=== PATIENT | female | born 1965 | race Caucasian/White ===

== ENCOUNTER 2017-02-13 08:56 | Observation (INO) | payer OTHER ==
--- NOTE | ~2017-02-13 | PREOPHP ---
PreOp History and Physical [place] [address] [facility] [place]. [address] NAME: NGUYỄN BROWNE : 63 STATUS : REG [facility] [place] PAT#: [id number] AGE: 51 ADM/REG DATE : 02/13/17 MR#: [id number] REPORT SERV DATE: 02/13/17 DICTATED BY: KODAK MANTILLA DATE: 02/13/17 REPORT STATUS : Draft TRANSCRIBED BY: YUSRA DATE: 02/13/17 CHIEF COMPLAINT: Neck and bilateral upper extremity pain. HISTORY OF PRESENT ILLNESS: The patient is a 51-year-old with neck pain and bilateral upper extremity pain as well as worsening problems with balance and dropping objects. After discussion of risks and benefits and informed consent and neurologic decline, the patient elected to proceed with surgical intervention. REVIEW OF SYSTEMS: She denies chest pain, shortness of breath, and bowel or bladder changes. PHYSICAL EXAMINATION: GENERAL: The patient is healthy appearing, in no acute distress. PSYCH: Alert and oriented x3. Normal mood and affect. Gait is somewhat unsteady. VASCULAR: No extremity swelling. SPINE: Decreased cervical motion. HEART: Regular rate and rhythm. LUNGS: Clear to auscultation. ABDOMEN: Soft, nontender, nondistended with good bowel sounds. BREASTS: Deferred. RECTAL: Deferred. NEUROLOGIC: Strength in the bilateral triceps and intrinsics is 4/5, remaining muscle strength 5/5. ALLERGIES: CODEINE, BUT SHE SAYS THAT SHE HAS RECENTLY TAKEN OXYCODONE ALONE THAT WAS FINE. THERE WAS A DISTANT HISTORY OF PERCOCET CAUSING AN ALLERGY, BUT SHE STATES THAT SHE HAS RECENTLY TOLERATED OXYCODONE, IT DOES CAUSE SOME NAUSEA THAT WAS TREATED WITH PHENERGAN. HOME MEDICATIONS: Include azithromycin, folic acid, Humira, hydrocodone, levofloxacin, lidocaine, meloxicam, prednisone, metoclopramide, omeprazole, ondansetron, prednisone, prochlorperazine, promethazine, sulfasalazine, Varubi. PAST MEDICAL HISTORY: Includes rheumatoid arthritis, gastric reflux, history of cancer. IMAGING: I have reviewed the MRI scan. The patient does have C5-C6 and C6-C7 disk disease and stenosis with spinal cord and nerve root compression. ASSESSMENT: Cervical disk disease and stenosis with cord compression, progressive signs of myelopathy, cervical radiculopathy, failed conservative treatment. PLAN: After discussion of the risks and benefits and neurologic decline, the patient elects to proceed with surgical intervention. JEROMY/YUSRA PreOp History and Physical [address] [address] NAME: NGUYỄN BROWNE : 63 STATUS : REG [facility] [place] PAT#: [id number] AGE: 51 ADM/REG DATE : 02/13/17 MR#: [id number] REPORT SERV DATE: 02/13/17 DICTATED BY: KODAK MANTILLA DATE: 02/13/17 REPORT STATUS : Draft TRANSCRIBED BY: YUSRA DATE: 02/13/17 Kodak Mantilla DO / [id number] CC: DO Compa Hazel MD
--- NOTE | ~2017-02-13 | OP ---
Record Of Operation [facility] [address] [place]. [address] NAME: NGUYỄN BROWNE : 63 STATUS : ADM [facility] PAT#: [id number] AGE: 51 ADM/REG DATE : 02/13/17 MR#: [id number] REPORT SERV DATE: 02/13/17 DICTATED BY: KODAK GROSS DATE: 02/13/17 REPORT STATUS : Draft TRANSCRIBED BY: MODL DATE: 02/13/17 DATE OF PROCEDURE: 02/13/2017 PREOPERATIVE DIAGNOSIS: C5-6, and C6-7 disk disease and stenosis, with spinal cord compression, and cervical myelopathy. POSTOPERATIVE DIAGNOSIS: C5-6, and C6-7 disk disease and stenosis, with spinal cord compression, and cervical myelopathy. PROCEDURE: Anterior cervical diskectomy and fusion, C5-6, and C6-7; placement of Medtronic PEEK interbody spacer, C5-6, and C6-7; allograft bone matrix, neuromonitoring, operative microscope; anterior cervical plate from Medtronic, C5 to C7. SURGEON: Kodak Gross DO. ANESTHESIA: General. ESTIMATED BLOOD LOSS: 10 mL. COMPLICATIONS: None. INDICATIONS: The patient is a pleasant 51-year-old, with intractable neck and arm pain, failed conservative treatment, and after discussion of risks and benefits, elected to proceed with surgical intervention. DESCRIPTION OF PROCEDURE: I identified the patient in the holding area, consent was obtained, went to the operating room, underwent general anesthesia with endotracheal intubation, prepped and draped in the usual sterile fashion, operative safety pause was performed, and then we proceeded with surgery. An oblique incision was made over the left side of the neck, taken through the platysma. Dissection was carried down to the anterior aspect of the spine. Longus colli was elevated. Self-retaining retractors were placed. Manquin pin was placed and operative level was verified with lateral fluoroscopic image. Distraction was applied across C5-C6. Operative microscope was brought in. A knife was used to perform an annulotomy. Free disk material was removed with pituitary. Anterior osteophytes were removed with Kerrison. Posterior osteophytes and uncinate processes were taken down with a elliot bur. Foraminotomy was performed with a Kerrison. Endplates were prepared with curettes, rasp, and a cutting bur. Trial spacers were implanted, then Medtronic PEEK interbody spacer with allograft bone matrix was placed at C5-C6. This was repeated again at the C6-C7 level. Manquin pins were removed. Anterior cervical plate from Medtronic was placed from C5 to C7. Screws were placed, locking mechanism was engaged. Final AP and lateral images were obtained. Irrigation was performed. Hemostasis was achieved. Subplatysmal drain was placed. Layered closure was performed. Sterile dressings were applied. The patient awoke, extubated, and taken to recovery room in stable condition. OPERATIVE FINDING: C5 to C7 disk disease and stenosis. No sustained neuromonitoring alerts occurred. Record Of Operation [address] [address] NAME: NGUYỄN BROWNE : 63 STATUS : ADM [facility] PAT#: [id number] AGE: 51 ADM/REG DATE : 02/13/17 MR#: [id number] REPORT SERV DATE: 02/13/17 DICTATED BY: KODAK GROSS DATE: 02/13/17 REPORT STATUS : Draft TRANSCRIBED BY: MODL DATE: 02/13/17 JEROMY/YUSRA Kodak Gross DO / [id number] CC: DO Compa Hazel MD
[~2017-02-13 08:56] MED LIST: BEN25 PO; BIOTIN5 MG PO; HARD NAILS PO; MOBIC7.5 PO; OXYCOD PO; P5 PO; PR25 PO; PRILOSEC40 MG PO; VITAMIN D1000 UNI1 PO
[2017-02-14 07:47] LABS: POTASSIUM, SERUM 4.3 MMOL/L (3.5-5.3)
[2017-02-15] MEDS ORDERED: FLEX PO ×2 (11:51→11:52)
[2017-06-26] MEDS ORDERED: TUMSROLL PO (11:17)
[2017-06-26] MEDS ORDERED: NEUR300 PO (11:19)
[2017-06-26] MEDS ORDERED: MOBIC7.5 PO (11:20)
== END 2017-02-15 12:49 | disposition home or self-care (01) ==
LOC: SDC 08:56 → 1SO 15:39
PROVIDERS: Orthopaedic Surgery
PROC: 0RG10A0 Fusion of Cervical Vertebral Joint with Interbody Fusion Device, Anterior Approach, Anterior Column, Open Approach (ICD-10-PCS; principal; 2017-02-13 10:45)
DX: M50.022 Cervical disc disorder at C5-C6 level with myelopathy (principal); M50.023 Cervical disc disorder at C6-C7 level with myelopathy; G95.20 Unspecified cord compression; K21.9 Gastro-esophageal reflux disease without esophagitis; L40.50 Arthropathic psoriasis, unspecified; Z88.5 Allergy status to narcotic agent; Z91.040 Latex allergy status; Z79.2 Long term (current) use of antibiotics; Z79.52 Long term (current) use of systemic steroids; Z79.899 Other long term (current) drug therapy; Z85.72 Personal history of non-Hodgkin lymphomas
CPT/HCPCS: 80048; 80051; 82962; 84703; 85014; 85018; 87641; 88304; 88311; 93005; 96374; 96375; 96376; 97161-GP; A9270-GY; C1713; G0378; J0690; J1170; J2250; J2270; J2370; J2405; J2550; J2710; J3010